=== PATIENT | female | born 1990 ===

== ENCOUNTER 2021-06-06 07:57 | Emergency (ER) | payer OTHER ==
--- NOTE | 2021-06-06 08:17 | ED ---
Fall HPI - General Chief Complaint: Fall Stated Complaint: Fall/head injury Time Seen by Provider: 06/06/21 08:02 Source: patient, RN notes reviewed Mode of arrival: ambulatory Limitations: no limitations - History of Present Illness Initial Comments: 31-year-old female presents emergency Department with chief complaint of fall. She slipped on some ice striking her head. Patient states no loss conscious does complain headache, dizziness. Patient states that she attempted to work but could not. Patient states that she took some Motrin prior arrival. Patient denies any blurred vision no focal weakness. Patient does complain of upper back pain no shortness breath no chest pain no low back pain no bowel bladder incontinence or retention or saddle anesthesias. - Related Data Allergies Allergy/AdvReac Type Severity Reaction Status Date / Time No Known Allergies Allergy Verified 06/06/21 08:02 Review of Systems ROS Statement: Those systems with pertinent positive or pertinent negative responses have been documented in the HPI. ROS Other: All systems not noted in ROS Statement are negative. Past Medical History Past Medical History: No Reported History History of Any Multi-Drug Resistant Organisms: None Reported Past Surgical History: Section Past Psychological History: No Psychological Hx Reported Smoking Status: Current every day smoker Past Alcohol Use History: None Reported Past Drug Use History: None Reported General Exam Limitations: no limitations General appearance: alert, in no apparent distress Head exam: Present: atraumatic, normocephalic, normal inspection Eye exam: Present: normal appearance, PERRL, EOMI. Absent: scleral icterus, conjunctival injection, periorbital swelling ENT exam: Present: normal exam, normal oropharynx, mucous membranes moist Neck exam: Present: normal inspection, full ROM. Absent: tenderness, meningismus, lymphadenopathy Respiratory exam: Present: normal lung sounds bilaterally. Absent: respiratory distress, wheezes, rales, rhonchi, stridor Cardiovascular Exam: Present: regular rate, normal rhythm, normal heart sounds. Absent: systolic murmur, diastolic murmur, rubs, gallop, clicks Neurological exam: Present: alert, oriented X3, CN II-XII intact, reflexes normal. Absent: motor sensory deficit Skin exam: Present: warm, dry, intact, normal color. Absent: rash Course Vital Signs 06/06/21 07:58 Temperature 98.5 F Pulse Rate 80 Respiratory 20 Rate Blood Pressure 104/70 O2 Sat by Pulse 100 Oximetry Medical Decision Making - Medical Decision Making CT of brain and C-spine are unremarkable., X-ray of the thoracic spine presented in acute abnormality. Patient we discharged stable condition return parameters discussed. Disposition Clinical Impression: Fall, Head contusion, Contusion of back wall of thorax Disposition: HOME SELF-CARE Condition: Stable Instructions (If sedation given, give patient instructions): Head Injury (ED) Additional Instructions: Please return to the Emergency Department if symptoms worsen or any other concerns. Is patient prescribed a controlled substance at d/c from ED?: No Referrals: Moses Hernandez DO [Primary Care Provider] - 1-2 days Time of Disposition: 08:51
--- NOTE | 2021-06-06 08:41 | XR ---
EXAMINATION TYPE: XR thoracic spine 2V DATE OF EXAM: 06/06/2021 COMPARISON: NONE HISTORY: Pain TECHNIQUE: 3 views submitted FINDINGS: Alignment is anatomic. There is no compression deformities. Vertebral body height and disc interspa cirilo are maintained. IMPRESSION: 1. No acute abnormality. If symptoms persist consider MRI.
--- NOTE | 2021-06-06 08:42 | CT ---
EXAMINATION TYPE: CT brain marcella delarosa DATE OF EXAM: 06/06/2021 COMPARISON: None available HISTORY: Pain. Fall/ head injury. CT DLP: 1453.7 mGycm Automated exposure control for dose reduction was used. TECHNIQUE: CT scan of the head and cervical spine are performed without contrast. FINDINGS: No acute intracranial hemorrhage or gross acute cortical infarct. No midline shift or herniation. Unr emarkable basal cisterns, sella and CP angles. No gross space-occupying lesion, vasogenic edema or ma ss effect. Unremarkable orbits. Clear visualized paranasal sinuses and mastoid air cells. No definite acute calvarial bone fracture identified. Good cervical vertebral alignment without significant anterolisthesis or retrolisthesis. No definite vertebral body collapse or acute displaced fracture. Unremarkable atlantoaxial and atlantooccipital a rticulations. No facet dislocation or significant subluxation. Unremarkable prevertebral soft tissue. No significant bony central spinal canal stenosis or neuroforaminal stenosis. Questionable small T1 v ertebral body hemangioma. Scattered subcentimeter bilateral upper cervical lymph nodes, nonspecific. No paraspinal lesion. IMPRESSION: 1. No acute intracranial posttraumatic sequela or acute calvarial bone fracture. 2. No acute traumatic bony injury of the cervical spine. Incidental findings as described above.
[2021-06-06 09:37] VITALS: BP 105/55; PULSE 67; RESP 18; TEMP 98.2
== END 2021-06-06 09:37 | disposition home or self-care (01) ==
LOC: EC 07:57
DX: S00.93XA Contusion of unspecified part of head, initial encounter (principal); S20.229A Contusion of unspecified back wall of thorax, initial encounter; F17.200 Nicotine dependence, unspecified, uncomplicated; W00.9XXA Unspecified fall due to ice and snow, initial encounter
CPT/HCPCS: 70450; 72070; 72125; 99284